=== PATIENT | female | born 2000 | race African-American/Black ===

== ENCOUNTER 2020-01-27 06:43 | Day surgery (SDC) | payer OTHER ==
[~2020-01-27] VITALS: Ht 165.1 cm; Wt 73.3 kg
[2020-01-27 07:08] VITALS: BP 110/69; PULSE 71; TEMP 98.3
--- NOTE | 2020-01-27 07:12 | NUR ---
TO RM AT [id number]- CALL LIGHT IN REACH FRIEND PETERSON WILL BE CALLED FOR RIDE HOME
[2020-01-27 08:15] VITALS: BP 117/70; PULSE 82; TEMP 97.7
--- NOTE | 2020-01-27 08:15 | NUR ---
Pt returned to [facility] 5. Pt drowsy. Assisted to recliner in bay from cart. VSS-see flowsheet. Given apple sauce and juice per request. Legs elevated in recliner, blankets placed on pt and call light in reach.
[2020-01-27 08:30] VITALS: BP 100/67; PULSE 66
[2020-01-27 08:45] VITALS: BP 100/73; PULSE 59
[2020-01-27 09:00] VITALS: BP 94/57; PULSE 86
--- NOTE | 2020-01-27 09:15 | NUR ---
Pt tolerated applesauce and juice. VS remain stable. IV removed, pressure dressing applied. Dr Gardner visited with pt and her friend post procedure. Discharge teaching completed, verbalized understanding. Taken via wheelchair to private vehicle for dc home with friend driving.
== END 2020-01-27 09:15 | disposition home or self-care (01) ==
LOC: SDCO 06:43
DX: K21.9 Gastro-esophageal reflux disease without esophagitis (principal); K59.00 Constipation, unspecified
CPT/HCPCS: J2250; J3010; J7030